=== PATIENT | female | born 1950 | race Caucasian/White ===

== ENCOUNTER → 2016-11-10 | Day surgery (SDC) | payer MEDICARE ==
[~2016-11-10] MED LIST: ARMOUR THYROID60 M1 PO; GABAPENTIN600 MG PO; NORVASC10 MG PO; PANTOPRAZOLE SO40 MG PO; XANAX0.5 MG PO
--- NOTE | ~2016-11-10 | OR ---
Unit #: [id number] #: [id number] Patient: RUBI PATEL [id number] [address] [place], [place] [address] [id number] O MR#: [id number] NAME: RUBI PATEL ROOM: Date of Procedure: 11/10/2016 Admission Date: 11/10/2016 Surgeon: John Frank M.D. : 1950 Attending Physician: John Frank M.D. Primary Care Physician: Carola Paul M.D. OPERATIVE REPORT PREOPERATIVE DIAGNOSIS Screening colonoscopy. POSTOPERATIVE DIAGNOSIS Screening colonoscopy. PROCEDURE PERFORMED Colonoscopy to cecum. ANESTHESIA Monitored anesthesia care. FINDINGS Normal colon to cecum. SPECIMENS None. COMPLICATIONS None apparent. CONDITION The patient tolerated the procedure well. INDICATIONS FOR PROCEDURE The patient is a 66-year-old white female, who presents at this time for screening colonoscopy. DESCRIPTION OF PROCEDURE After obtaining informed consent, the patient was brought to the endoscopy suite and after adequate monitored anesthesia care, had the colonoscope placed through the anus and slowly advanced to the level of cecum without difficulty with lumen always in view. The cecum was normal as was the ileocecal valve. The ascending colon was normal as was the hepatic flexure, transverse colon, splenic flexure, descending colon, sigmoid colon, and rectum. On retroflexing in the rectum to the anorectal junction, there was no abnormality seen. The scope was removed without difficulty. The patient tolerated the procedure well and went from the endoscopy suite to the recovery area in stable condition. RECOMMENDATIONS High-fiber diet, lots of liquids, tucks or wipes p.r.n. Follow up in our Unit #: [id number] #: [id number] Patient: RUBI PATEL office as needed. Dictated by... Rachele Pan/nadiral TD: 11/10/2016 22:20 JOB #: [id number] [facility] OPERATIVE REPORT X John Frank MD X PROCEDURE OPERATIVE NOTE
== END | disposition home or self-care (01) ==
LOC: COPS 10:43
PROVIDERS: Surgery
PROC: 0DJD8ZZ Inspection of Lower Intestinal Tract, Via Natural or Artificial Opening Endoscopic (ICD-10-PCS; principal; 2016-11-10 12:30)
DX: Z12.11 Encounter for screening for malignant neoplasm of colon (principal); K21.9 Gastro-esophageal reflux disease without esophagitis; E11.9 Type 2 diabetes mellitus without complications; I10 Essential (primary) hypertension; E03.9 Hypothyroidism, unspecified; K44.9 Diaphragmatic hernia without obstruction or gangrene; Z79.899 Other long term (current) drug therapy; I51.9 Heart disease, unspecified; G89.29 Other chronic pain; M54.9 Dorsalgia, unspecified; M79.673 Pain in unspecified foot; M25.559 Pain in unspecified hip; Z80.1 Family history of malignant neoplasm of trachea, bronchus and lung; Z84.89 Family history of other specified conditions; Z87.440 Personal history of urinary (tract) infections; Z90.710 Acquired absence of both cervix and uterus; Z98.890 Other specified postprocedural states; Z88.7 Allergy status to serum and vaccine
CPT/HCPCS: 82947